=== PATIENT | male | born 1945 | race Caucasian/White ===

== ENCOUNTER 2018-04-06 11:27 | Outpatient (RCR) | payer MEDICARE, MEDICAID, SELFPAY | END 2018-04-27 23:59 | disposition home or self-care (01) | LOC: CR 11:27 | PROVIDERS: PCP Family Medicine; Visit Provider Family Medicine | DX: Z95.0 Presence of cardiac pacemaker (principal); Z51.89 Encounter for other specified aftercare | CPT/HCPCS: S9472 ==

== ENCOUNTER 2018-04-10 10:30 | Outpatient (CLI) | payer MEDICARE, MEDICAID, SELFPAY | END 2018-04-10 10:31 | PROVIDERS: PCP Family Medicine; Visit Provider Nurse Practitioner Family | DX: Z45.018 Encounter for adjustment and management of other part of cardiac pacemaker (principal); I48.0 Paroxysmal atrial fibrillation; I49.5 Sick sinus syndrome; I50.32 Chronic diastolic (congestive) heart failure; N18.3 Chronic kidney disease, stage 3 (moderate) | CPT/HCPCS: 93280; 99213 ==

== ENCOUNTER 2018-04-10 10:58 | Outpatient (CLI) | payer MEDICARE, MEDICAID, SELFPAY ==
[2018-04-10 11:34] LABS: HCT 33.2 % (40.0-50.0); HGB 11.2 g/dL (13.5-17.5); Mean Corp. HGB Concentration 33.7 g/dL (32.0-36.0); Mean Corpuscular Volume 97.9 fL (80-95); Mean Platelet Volume 8.7 fL (8.0-11.0); Platelet Count 200 x1000/uL (130-400); RBC 3.39 m/cumm (4.50-6.00); RBC Distribution Width 13.5 % (11.8-14.1); White Blood Cell Count 7.65 k/cumm (4.4-10.8)
[2018-04-10 13:03] LABS: Anion Gap 9.6 mmol/L (3-11); BUN 49 mg/dL (7-18); CO2 26.4 mmol/L (21.0-32.0); CREATININE 2.47 mg/dL (0.70-1.30); Calcium 8.7 mg/dL (8.5-10.1); Chloride 104 mmol/L (98-107); Glucose 119 mg/dL (70-100); NT-proBNP 235 pg/mL; Potassium 4.7 mmol/L (3.5-5.1); Sodium 140 mmol/L (136-145)
== END 2018-04-10 10:59 ==
PROVIDERS: Nurse Practitioner Family; PCP Family Medicine; Visit Provider Internal Medicine Interventional Cardiology
DX: I25.10 Atherosclerotic heart disease of native coronary artery without angina pectoris (principal); I50.9 Heart failure, unspecified
CPT/HCPCS: 36415; 80048; 85027; 93280; 83880; 99213

== ENCOUNTER 2018-04-16 13:18 | Outpatient (CLI) | payer MEDICARE, MEDICAID, SELFPAY ==
[2018-04-16 13:43] LABS: HCT 33.9 % (40.0-50.0); HGB 11.4 g/dL (13.5-17.5); Mean Corp. HGB Concentration 33.6 g/dL (32.0-36.0); Mean Corpuscular Hemoglobin 32.9 pg (27.0-33.0); Mean Corpuscular Volume 97.7 fL (80-95); Mean Platelet Volume 8.9 fL (8.0-11.0); Platelet Count 225 x1000/uL (130-400); RBC 3.47 m/cumm (4.50-6.00); RBC Distribution Width 13.4 % (11.8-14.1); White Blood Cell Count 7.58 k/cumm (4.4-10.8)
[2018-04-16 15:01] LABS: Anion Gap 9.6 mmol/L (3-11); BUN 32 mg/dL (7-18); CO2 24.4 mmol/L (21.0-32.0); Calcium 8.8 mg/dL (8.5-10.1); Chloride 103 mmol/L (98-107); Estimated GFR 39.71 (mL/min/1.73m2); Glucose 131 mg/dL (70-100); NT-proBNP 399 pg/mL; Potassium 4.2 mmol/L (3.5-5.1); Sodium 137 mmol/L (136-145)
== END 2018-04-16 13:19 ==
PROVIDERS: Internal Medicine Interventional Cardiology; PCP Family Medicine; Visit Provider Nurse Practitioner Gerontology
DX: I25.10 Atherosclerotic heart disease of native coronary artery without angina pectoris (principal); I50.9 Heart failure, unspecified
CPT/HCPCS: 36415; 80048; 85027; 83880

== ENCOUNTER 2018-04-16 14:00 | Outpatient (CLI) | payer MEDICARE, MEDICAID, SELFPAY | END 2018-04-16 14:01 | PROVIDERS: PCP Family Medicine; Visit Provider Internal Medicine Interventional Cardiology | DX: R06.02 Shortness of breath (principal); I51.9 Heart disease, unspecified; I48.91 Unspecified atrial fibrillation; R00.1 Bradycardia, unspecified; R09.02 Hypoxemia; I11.0 Hypertensive heart disease with heart failure; J44.9 Chronic obstructive pulmonary disease, unspecified; I27.20 Pulmonary hypertension, unspecified | CPT/HCPCS: 99213 ==

== ENCOUNTER 2018-04-16 14:49 | Outpatient (CLI) | payer MEDICARE, MEDICAID, SELFPAY | END 2018-04-16 14:50 | PROVIDERS: PCP Family Medicine; Visit Provider Internal Medicine Interventional Cardiology | DX: I25.10 Atherosclerotic heart disease of native coronary artery without angina pectoris (principal); I50.9 Heart failure, unspecified; I48.91 Unspecified atrial fibrillation | CPT/HCPCS: 93005; 36415; 80048; 85027; 83880; 93010; 99213 ==

== ENCOUNTER 2018-04-29 13:03 | Outpatient (RCR) | payer MEDICARE, MEDICAID, SELFPAY | END 2018-05-27 23:59 | disposition home or self-care (01) | LOC: CR 13:03 | PROVIDERS: PCP Family Medicine; Visit Provider Family Medicine | DX: Z51.89 Encounter for other specified aftercare (principal) ==

== ENCOUNTER 2018-05-03 12:06 | Outpatient (RCR) | payer MEDICARE, MEDICAID, SELFPAY | END 2018-05-27 23:59 | disposition home or self-care (01) | LOC: CR 12:06 | PROVIDERS: PCP Family Medicine; Visit Provider Family Medicine | DX: Z51.89 Encounter for other specified aftercare (principal) ==

== ENCOUNTER 2018-05-24 02:37 | Outpatient (CLI) | payer MEDICARE, MEDICAID, SELFPAY ==
[2018-05-24 10:39] VITALS: PULSE 102; PULSE 106; PULSE 60; PULSE 90; O2SAT 87; O2SAT 89; O2SAT 94; O2SAT 96
== END 2018-05-24 02:57 ==
PROVIDERS: PCP Family Medicine; Visit Provider Internal Medicine Interventional Cardiology
DX: R06.89 Other abnormalities of breathing (principal)
CPT/HCPCS: 94618

== ENCOUNTER → 2018-06-05 11:12 | Outpatient (BNVA) | payer MEDICARE, MEDICAID, SELFPAY | PROVIDERS: Visit Provider Nurse Practitioner Family | DX: I48.0 Paroxysmal atrial fibrillation (principal); I49.5 Sick sinus syndrome; Z45.018 Encounter for adjustment and management of other part of cardiac pacemaker; Z79.01 Long term (current) use of anticoagulants; J44.9 Chronic obstructive pulmonary disease, unspecified; Z87.891 Personal history of nicotine dependence | CPT/HCPCS: 93280; 99213 ==

== ENCOUNTER 2018-07-02 12:28 | Outpatient (CLI) | payer MEDICARE, MEDICAID, SELFPAY ==
[2018-07-02 12:52] LABS: Abs Immature Grans 0.01 k/cumm (0.0-0.09); Absolute Basophil Count 0.04 k/cumm (0.0-0.2); Absolute Eosinophil Count 0.35 k/cumm (0.0-0.7); Absolute Lymphocyte Count 1.43 k/cumm (1.2-3.4); Absolute Monocyte Count 0.52 k/cumm (0.11-0.7); Absolute Neutrophil Count 4.28 k/cumm (1.2-6.7); Basophils % 0.6; Eosinophils % 5.3; HCT 36.9 % (40.0-50.0); HGB 12.3 g/dL (13.5-17.5); Immature Grans % 0.2; Lymphocytes % 21.6; Mean Corp. HGB Concentration 33.3 g/dL (32.0-36.0); Mean Corpuscular Volume 96.1 fL (80-95); Mean Platelet Volume 9.1 fL (8.0-11.0); Monocytes % 7.8; Neutrophils % 64.5; Platelet Count 246 x1000/uL (130-400); RBC 3.84 m/cumm (4.50-6.00); RBC Distribution Width 13.6 % (11.8-14.1); White Blood Cell Count 6.63 k/cumm (4.4-10.8)
[2018-07-02 13:16] LABS: INR 3.9 (1.0-3.5); Prothrombin Time 36.5 sec (9.3-10.8)
[2018-07-02 13:16] LABS: Hemoglobin A1C 5.5 % (4.5-6.2)
[2018-07-02 13:31] LABS: COMMENT (LAB VIEW ONLY) 18.54 mg/dL; Microalb ug/mg Crea 22.1 ug/mg Cr
[2018-07-02 13:56] LABS: Iron 87 ug/dL (50-175)
[2018-07-02 14:11] LABS: ALT 23 U/L (12-78); AST 21 U/L (15-37); Albumin 4.3 g/dL (3.4-5.0); Alkaline Phosphatase 72 U/L (46-116); Anion Gap 8.1 mmol/L (3-11); BUN 38 mg/dL (7-18); Bilirubin, Total 0.4 mg/dL (0.2-1.0); CO2 26.9 mmol/L (21.0-32.0); CREATININE 1.83 mg/dL (0.70-1.30); Calcium 9.2 mg/dL (8.5-10.1); Chloride 103 mmol/L (98-107); Cholesterol 172 mg/dL (50-200); Estimated GFR 36.47 (mL/min/1.73m2); Ferritin 169 ng/mL (8-388); Glucose 99 mg/dL (70-100); HDL Cholesterol 38 mg/dL (40-60); LDL CHOLESTEROL 83 mg/dL (<100); Potassium 5.5 mmol/L (3.5-5.1); Sodium 138 mmol/L (136-145); Total Protein 8.1 g/dL (6.4-8.2); Triglyceride 282 mg/dL (30-150)
[2018-07-02 14:30] LABS: NT-proBNP 369 pg/mL; PHOSPHORUS 3.1 mg/dL (2.6-4.7)
== END 2018-07-02 12:48 ==
PROVIDERS: PCP Family Medicine; Visit Provider Family Medicine
DX: E78.2 Mixed hyperlipidemia (principal); D64.9 Anemia, unspecified; I50.42 Chronic combined systolic (congestive) and diastolic (congestive) heart failure; R73.02 Impaired glucose tolerance (oral); I48.91 Unspecified atrial fibrillation; N18.3 Chronic kidney disease, stage 3 (moderate); Z79.01 Long term (current) use of anticoagulants
CPT/HCPCS: 36415; 80061; 80069; 80076; 83721; 82043; 82570; 82728; 83036; 83540; 83880; 85025; 85610

== ENCOUNTER → 2018-07-17 10:20 | Outpatient (BNVA) | payer MEDICARE, MEDICAID, SELFPAY | PROVIDERS: PCP Family Medicine; Visit Provider Nurse Practitioner Family | DX: R69 Illness, unspecified (principal) ==

== ENCOUNTER → 2018-07-30 09:56 | Outpatient (BNVA) | payer MEDICARE, MEDICAID, SELFPAY | PROVIDERS: PCP Family Medicine; Referring Provider Family Medicine; Visit Provider Surgery | DX: K42.9 Umbilical hernia without obstruction or gangrene (principal); J44.9 Chronic obstructive pulmonary disease, unspecified; Z87.891 Personal history of nicotine dependence; I10 Essential (primary) hypertension | CPT/HCPCS: 99214 ==

== ENCOUNTER → 2018-10-25 10:27 | Outpatient (BNVA) | payer MEDICARE, MEDICAID, SELFPAY | PROVIDERS: PCP Family Medicine; Visit Provider Nurse Practitioner Family | DX: I48.0 Paroxysmal atrial fibrillation (principal); I49.5 Sick sinus syndrome; J44.9 Chronic obstructive pulmonary disease, unspecified; I13.0 Hypertensive heart and chronic kidney disease with heart failure and stage 1 through stage 4 chronic kidney disease, or unspecified chronic kidney disease; N18.9 Chronic kidney disease, unspecified; Z87.891 Personal history of nicotine dependence; Z45.018 Encounter for adjustment and management of other part of cardiac pacemaker; I50.32 Chronic diastolic (congestive) heart failure | CPT/HCPCS: 93280; 99213 ==

== ENCOUNTER 2018-11-26 08:58 | Outpatient (CLI) | payer MEDICARE, MEDICAID, SELFPAY | END 2018-11-26 09:18 | PROVIDERS: PCP Family Medicine; Visit Provider Internal Medicine Interventional Cardiology | DX: I25.10 Atherosclerotic heart disease of native coronary artery without angina pectoris (principal); I42.0 Dilated cardiomyopathy; I51.9 Heart disease, unspecified; R06.02 Shortness of breath; I48.91 Unspecified atrial fibrillation; I11.9 Hypertensive heart disease without heart failure; I27.20 Pulmonary hypertension, unspecified | CPT/HCPCS: 99214; 93005; 93010 ==

== ENCOUNTER 2019-02-22 14:20 | Outpatient (CLI) | payer MEDICARE, MEDICAID, SELFPAY ==
[2019-02-22 14:42] LABS: HCT 34.6 % (40.0-50.0); HGB 11.3 g/dL (13.5-17.5); Mean Corp. HGB Concentration 32.7 g/dL (32.0-36.0); Mean Corpuscular Hemoglobin 32.2 pg (27.0-33.0); Mean Corpuscular Volume 98.6 fL (80-95); Mean Platelet Volume 8.7 fL (8.0-11.0); Platelet Count 256 x1000/uL (130-400); RBC 3.51 m/cumm (4.50-6.00); White Blood Cell Count 6.63 k/cumm (4.4-10.8)
[2019-02-22 15:49] LABS: Anion Gap 9.7 mmol/L (3-11); BUN 33 mg/dL (7-18); CO2 24.3 mmol/L (21.0-32.0); CREATININE 2.12 mg/dL (0.70-1.30); Chloride 103 mmol/L (98-107); Estimated GFR 30.69 (mL/min/1.73m2); NT-proBNP 494 pg/mL; Potassium 5.1 mmol/L (3.5-5.1); Sodium 137 mmol/L (136-145)
== END 2019-02-22 14:40 ==
PROVIDERS: PCP Family Medicine; Visit Provider Internal Medicine Interventional Cardiology
DX: I27.20 Pulmonary hypertension, unspecified (principal); I48.91 Unspecified atrial fibrillation; J44.9 Chronic obstructive pulmonary disease, unspecified; R06.02 Shortness of breath
CPT/HCPCS: 36415; 80051; 84520; 85027; 82565; 83880

== ENCOUNTER 2019-02-25 08:45 | Outpatient (CLI) | payer MEDICARE, MEDICAID, SELFPAY | END 2019-02-25 09:05 | PROVIDERS: PCP Family Medicine; Visit Provider Internal Medicine Interventional Cardiology | DX: I48.91 Unspecified atrial fibrillation (principal); J44.9 Chronic obstructive pulmonary disease, unspecified; I51.9 Heart disease, unspecified; I27.20 Pulmonary hypertension, unspecified; R00.1 Bradycardia, unspecified; I11.0 Hypertensive heart disease with heart failure | CPT/HCPCS: 99214; 93005; 93010; 99213 ==

== ENCOUNTER 2019-04-08 08:14 | Outpatient (CLI) | payer MEDICARE, MEDICAID, SELFPAY | END 2019-04-08 08:34 | PROVIDERS: PCP Family Medicine; Visit Provider Internal Medicine Interventional Cardiology | DX: I51.9 Heart disease, unspecified (principal); R06.02 Shortness of breath; I48.91 Unspecified atrial fibrillation; Z95.0 Presence of cardiac pacemaker; R00.1 Bradycardia, unspecified; E11.9 Type 2 diabetes mellitus without complications; I10 Essential (primary) hypertension; I27.20 Pulmonary hypertension, unspecified; R09.02 Hypoxemia | CPT/HCPCS: 36415; 80051; 80061; 80076; 83721; 84520; 85027; 99214; 82565; 83880; 84443; 84484; 93005; 93010 ==

== ENCOUNTER 2019-04-08 13:16 | Outpatient (CLI) | payer MEDICARE, MEDICAID, SELFPAY ==
[2019-04-08 13:56] LABS: HCT 34.7 % (40.0-50.0); HGB 11.2 g/dL (13.5-17.5); Mean Corp. HGB Concentration 32.3 g/dL (32.0-36.0); Mean Corpuscular Hemoglobin 31.7 pg (27.0-33.0); Mean Corpuscular Volume 98.3 fL (80-95); Mean Platelet Volume 9.1 fL (8.0-11.0); Platelet Count 223 x1000/uL (130-400); RBC 3.53 m/cumm (4.50-6.00)
[2019-04-08 14:20] LABS: ALT 16 U/L (12-78); AST 12 U/L (15-37); Albumin 3.6 g/dL (3.4-5.0); Alkaline Phosphatase 56 U/L (46-116); Anion Gap 10.3 mmol/L (3-11); BUN 57 mg/dL (7-18); Bilirubin, Total 0.7 mg/dL (0.2-1.0); CO2 24.7 mmol/L (21.0-32.0); CREATININE 3.41 mg/dL (0.70-1.30); Chloride 103 mmol/L (98-107); Estimated GFR 17.73 (mL/min/1.73m2); NT-proBNP 522 pg/mL; Potassium 5.4 mmol/L (3.5-5.1); Sodium 138 mmol/L (136-145); TSH (W/Ref FT4) 2.31 uIU/mL (0.36-3.74)
[2019-04-08 14:21] LABS: Troponin I < 0.05 ng/mL (0.00-0.06)
[2019-04-08 14:34] LABS: Calculated LDL 52 mg/dL; Cholesterol 128 mg/dL (50-200); HDL Cholesterol 28 mg/dL (40-60); Triglyceride 241 mg/dL (30-150)
== END 2019-04-08 13:36 ==
PROVIDERS: PCP Family Medicine; Visit Provider Internal Medicine Interventional Cardiology
DX: N19 Unspecified kidney failure (principal); I48.91 Unspecified atrial fibrillation
CPT/HCPCS: 36415; 80051; 80061; 80076; 83721; 84520; 85027; 82565; 83880; 84443; 84484

== ENCOUNTER 2019-05-01 09:12 | Outpatient (CLI) | payer MEDICARE, MEDICAID, SELFPAY ==
[2019-05-01 11:37] LABS: Amylase 66 U/L (25-115); Lipase 261 U/L (73-393)
== END 2019-05-01 09:32 ==
PROVIDERS: PCP Family Medicine; Visit Provider Internal Medicine Interventional Cardiology
DX: R10.9 Unspecified abdominal pain (principal); I48.92 Unspecified atrial flutter
CPT/HCPCS: 36415; 83690; NC OV; 82150; 93005; 93010

== ENCOUNTER → 2019-05-07 08:39 | Outpatient (BNVA) | payer MEDICARE, MEDICAID, SELFPAY | PROVIDERS: PCP Family Medicine; Visit Provider Nurse Practitioner Family | DX: I48.92 Unspecified atrial flutter (principal); I49.5 Sick sinus syndrome; Z45.018 Encounter for adjustment and management of other part of cardiac pacemaker | CPT/HCPCS: 93280; 99024 ==

== ENCOUNTER 2019-06-05 10:44 | Emergency (ER) | payer MEDICARE, MEDICAID, SELFPAY ==
[2019-06-05] VITALS (8 sets, daily range): BP systolic 117–138; BP diastolic 70–90; PULSE 69–74; RESP 16–18; TEMP 36.6; O2SAT 94–98
--- NOTE | 2019-06-05 11:08 | ED.GENADUL_ITS ---
Discharge Plan Disposition Patient Disposition: HOME Condition: Stable Discharge Details Chief Complaint: Abd Prob Clinical Impression: Abdominal pain, Acute streptococcal pharyngitis, Tinea corporis, Left kidney mass Primary Care Provider: Gunnar Brannon ED Provider: Asuncion Greenwood Home Meds and New Rx's Prescriptions: New amoxicillin 500 mg tablet 500 mg PO BID 10 Days Qty: 20 RF: 0 clotrimazole-betamethasone 1-0.05 % cream 1 applic TP BID 14 Days Qty: 15 RF: 0 Continued rosuvastatin 10 mg tablet 10 mg PO DAILY RF: 0 carvedilol 12.5 mg tablet 12.5 mg PO BID RF: 0 fluticasone propionate 50 mcg/actuation spray,suspension 1 spray JAREN DAILY PRNRF: 0 nystatin 100,000 unit/gram cream 1 applic TP BID RF: 0 spironolactone 25 mg tablet 25 mg PO QAM RF: 0 prednisone 5 mg tablet 15 mg PO .3X/WEEK RF: 0 albuterol sulfate [Ventolin HFA] 90 mcg/actuation HFA aerosol inhaler 2 puff IH Q6H PRNRF: 0 warfarin 2.5 MG tablet 2.5 mg PO DAILY RF: 0 ranitidine HCl 300 MG capsule 300 mg PO BID RF: 0 lisinopril 10 MG tablet 10 mg PO DAILY Qty: 90 RF: 3 clopidogrel [Plavix] 75 MG tablet 75 mg PO DAILY Qty: 90 RF: 3 torsemide 20 MG tablet 80 mg PO DAILY Qty: 120 RF: 11 tamsulosin 0.4 MG capsule 0.4 mg PO DAILY Qty: 30 RF: 0 nitroglycerin [Nitrostat] 0.4 MG tablet, sublingual 0.4 mg Sublingual Q5 MIN PRN X3 PRNQty: 60 RF: 0 Discharge Instructions Instructions: Pharyngitis (ED), Abdominal Pain (ED), Skin Yeast Infection (ED) Additional Instructions: Take the antibiotics until finished. Use the topical antifungal/steroid cream as directed. Call your primary care doctor tomorrow to schedule a follow-up appointment for reevaluation and for further evaluation of your left kidney mass noted on CT and ultrasound. Return immediately to the emergency department if you develop any worsening or new concerning symptoms. Discharge Data Discharge Date/Time-TO BE ENTERED AT DEPARTURE: 06/05/19 17:45 Discharge Physician: Asuncion Greenwood Medical Decision Making 73-year-old male with a history of atrial fibrillation on Coumadin, COPD, CKD, GERD and obstructive sleep apnea who presents with left lower quadrant pain for the past week and a dry cough and sore throat since this morning. He does also admit to diarrhea last week and vomiting 3 days ago which have since resolved. He saw his primary doctor yesterday who advised him to come to the ER for his abdominal pain but he presents today. Rapid strep done on arrival and positive. His abdomen is obese and distended and tender in the right upper and left lower quadrant. He appears nontoxic. No abdominal rigidity or guarding. Differential diagnosis includes diverticulitis, appendicitis, cholecystitis, gastroenteritis. Will place an IV, small bolus IV fluids, labs, urinalysis and CT abdomen and pelvis. Labs reviewed and note a normal white blood cell count of 8, normal electro lytes, BUN 79, creatinine slightly worse from last result in March of 3.412 now 3.57, GFR 16. Lipase is normal, urinalysis unremarkable. Will cancel CT with IV contrast and do oral contrast only. 1520 -- CT notes a a 7 cm left kidney mass but no other acute significant findings. A kidney ultrasound was recommended for further evaluation. 1700 --ultrasound reviewed and there is a 6.5 cm cystic mass noted in the left kidney which could be evaluated further by MRI. Patient has a pacemaker so this would not be recommended. Findings could indicate chronic UPJ obstruction. Patient has no difficulty with urination. Patient states he feels much better and feels good to go home. We will treat his strep with amoxicillin. Just prior to discharge, patient wanted me to evaluate an itchy burning rash in his right axilla. This appeared consistent with tinea corporis and was given a prescription for clotrimazole/betamethasone. He is advised to follow-up with his primary care doctor for reevaluation and to return here if worse. Imaging Data Radiologic Study: Radiologist's impression: CT ABDOMEN AND PELVIS WO CLINICAL HISTORY: LLQ abd pain, r/o diverticulitis. TECHNIQUE: The examination was carried out with oral contrast enhancement. COMPARISON: No exams were available for comparison FINDINGS: Allowing for motion artifact, no gross abnormality involving the lung bases is seen. The heart is enlarged, pacing wires are noted ending in the right atrium and right ventricle. The liver and gallbladder are unremarkable. The pancreas is intact. A small calcification in the spleen consistent with old granulomatous disease. There is what appears to represent a mass involving the midpole of the left kidney, which measures up to 7.3 cm is in maximal diameter. There is no evidence of hydronephrosis. The right kidney is unremarkable. The adrenals are unremarkable. There is no evidence of obstruction and there is nothing to suggest an acute appendix. Scattered diverticula are demonstrated in the sigmoid colon. There is no definite evidence of diverticulitis. There are atherosclerotic changes involving the aorta without evidence of an aneurysm. The bladder is not ideally distended but appears grossly intact. The reproductive organs as visualized appear intact. IMPRESSION: Diverticulosis without evidence of diverticulitis. There is what appears to represent a mass projected over the mid pole of the left kidney which may measure up to 7.3 cm in maximal diameter. In the absence of intravenous contrast enhancement, further evaluation with ultrasound is suggested. US RENAL CLINICAL HISTORY: further eval of L kidney mass. TECHNIQUE: Ultrasound performed using standard protocol. COMPARISON: CT ABDOMEN PELVIS WO from 06/05/2019 FINDINGS: The exam is limited by the patient's body habitus. There is dilatation of the left renal pelvis as seen on the previous CT. It appears to abruptly end at the renal pelvis. No stone is visible on the CT. The findings could represent chronic ureteropelvic junction obstruction. There is a cystic mass with septations on the lateral aspect of the left kidney measuring 6.5 by 5.2 x 3.6 cm. The right kidney is unremarkable. The prevoid bladder volume measured 51 cc. The patient was unable to void. There is no bladder wall thickening. The left ureteral jet was not seen. IMPRESSION: 6.5 centimeter septated cystic mass of the left kidney was not well evaluated by either ultrasound or CT. MRI could be considered for further evaluation. Dilatation of the left renal pelvis could represent chronic UPJ obstruction or prominent UPJ. HPI General Mode of arrival: ambulatory . Date/Time Provider Initiated Documentation: 06/05/19 10:46 . Limitations to Documentation: no limitations . Information obtained by: patient . HPI Narrative: Patient is a 73-year-old male with a history of atrial fibrillation on Coumadin, BPPV, COPD, CKD, GERD, obstructive sleep apnea, pacemaker and cardiac stent who presents with abdominal pain, vomiting and diarrhea for the past week, and sore throat dry cough since this morning. He states last week he had multiple episodes of watery brown diarrhea which has since resolved and states he has not had a bowel movement for the past week. He states he was vomiting up to 12 times a day 3 days ago and states he last vomited 2 days ago. He describes his abdominal pain is intermittent, crampy in the left lower quadrant. He states he saw his primary care doctor yesterday for his symptoms and was advised to come to the ER yesterday but he did not. He denies any fever, urinary symptoms, chest pain, or any worsening of his chronic shortness of breath. Related Data Home Medications Medication Instructions Recorded Confirmed nitroglycerin [Nitrostat] 0.4 mg SUBLINGUAL Q5 MIN PRN X3 12/09/14 06/05/19 PRN #60 tab tamsulosin 0.4 mg PO DAILY #30 capcr 12/09/14 06/05/19 ranitidine HCl 300 mg PO BID tab-cap 06/02/15 06/05/19 warfarin 2.5 mg PO DAILY tab-cap 06/02/15 06/05/19 clopidogrel [Plavix] 75 mg PO DAILY #90 tab-cap 02/14/18 06/05/19 lisinopril 10 mg PO DAILY #90 tab-cap 02/14/18 06/05/19 torsemide 80 mg PO DAILY #120 tab-cap 03/21/18 06/05/19 albuterol sulfate 90 mcg/actuation 2 puff IH Q6H PRN 11/26/18 06/05/19 aerosol inhaler carvedilol 12.5 mg tablet 12.5 mg PO BID 05/01/19 06/05/19 fluticasone propionate 50 1 spray JAREN DAILY PRN 05/01/19 06/05/19 mcg/actuation nasal spray,suspension nystatin 100,000 unit/gram topical 1 applic TP BID 05/01/19 06/05/19 cream rosuvastatin 10 mg tablet 10 mg PO DAILY 05/01/19 06/05/19 spironolactone 25 mg tablet 25 mg PO QAM tab 05/01/19 06/05/19 prednisone 5 mg tablet 15 mg PO .3X/WEEK tab 05/07/19 06/05/19 amoxicillin 500 mg PO BID 10 Days #20 tab 06/05/19 clotrimazole-betamethasone 1 applic TP BID 14 Days #15 gm 06/05/19 Previous Rx's Medication Instructions Recorded nitroglycerin [Nitrostat] 0.4 mg SUBLINGUAL Q5 MIN PRN X3 12/09/14 PRN #60 tab tamsulosin 0.4 mg PO DAILY #30 capcr 12/09/14 clopidogrel [Plavix] 75 mg PO DAILY #90 tab-cap 02/14/18 lisinopril 10 mg PO DAILY #90 tab-cap 02/14/18 torsemide 80 mg PO DAILY #120 tab-cap 03/21/18 amoxicillin 500 mg PO BID 10 Days #20 tab 06/05/19 clotrimazole-betamethasone 1 applic TP BID 14 Days #15 gm 06/05/19 Allergies Allergy/AdvReac Type Severity Reaction Status Date / Time codeine Allergy Verified 05/07/19 09:04 atorvastatin AdvReac severe Verified 05/07/19 09:04 headaches morphine AdvReac Verified 05/07/19 09:04 General Stated Complaint: Abd Prob PATEL: 3 Review of Systems Review of Systems ROS Unobtainable: All systems reviewed & are unremarkable except as noted in HPI and below Constitutional Constitutional: Reports as per HPI, Denies chills and Denies fever(s) Eyes Eyes: Denies blurry vision ENT Ears, Nose, Mouth, and Throat: Denies dizziness, Reports sore throat and Denies throat swelling Cardiovascular Cardiovascular: Denies chest pain and Denies dyspnea Respiratory Respiratory: Denies cough and Denies dyspnea Gastrointestinal Gastrointestinal: Reports abdominal pain, Denies diarrhea and Denies vomiting Genitourinary Genitourinary: Denies hematuria and Denies dysuria Musculoskeletal Musculoskeletal: Denies back pain and Denies numbness Integumentary/Breasts Skin/Breast: Denies lesions and Denies rash Neurologic Neurologic: Denies dizziness, Denies focal weakness and Denies numbness Allergic/Immunologic Allergic/Immunologic: Denies throat swelling [facility] Medical History Allergic rhinitis (Acute) Anemia (Chronic) Aortic valve stenosis (Chronic) Atherosclerosis of coronary artery without angina pectoris (Chronic) Atrial fibrillation (Chronic ~09/2017) clinically silent Benign paroxysmal positional vertigo (Chronic) Cardiomyopathy (Chronic ~04/2018) LVEF = 50-55% on 09/2017 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) Chronic kidney disease (Chronic) stage three COPD (chronic obstructive pulmonary disease) (Chronic) Degeneration of intervertebral disc (Chronic) Dyspnea (Acute ~04/2018) qualifies for oxygen Essential (primary) hypertension (Chronic) Generalized abdominal pain (Acute) GERD (gastroesophageal reflux disease) (Chronic) Hyperlipidemia (Chronic) Hyperplasia of prostate (Chronic) Hypersomnia (Chronic) Impaired glucose tolerance (Acute) JONNY (obstructive sleep apnea) (Chronic) Pacemaker (Chronic 11/21/17) [facility] Patent ductus arteriosus (Chronic) Pulmonary hypertension (Chronic) Sick sinus syndrome (Chronic) Umbilical hernia (Acute ~05/2018) Surgical History EGD/COLONOSCOPY W/MAC (07/10/15) DR.C. JAVIER History of permanent cardiac pacemaker placement (Resolved) History of right coronary artery stent placement (Acute) Social History Smoking/Tobacco Use Status: Former Tobacco Use Tobacco: How many years used: 20 Smokeless tobacco user: chewing tobacco Alcohol Intake: former Year quit: 2001 Drug use: Never Substance use type: does not use Do you feel safe in your relationship?: Yes Exam Const General: cooperative and no acute distress Orientation: alert and awake HENMT Head: normal to inspection Ears: hearing grossly normal bilaterally, external ears normal and TM's normal bilaterally General nose exam: external nose normal Face and sinus: normal facial exam Mouth: oral mucosae normal Teeth and gingiva: dentition normal Throat: uvula midline, no peritonsillar masses and posterior oropharynx abnormal erythema; no edema and no exudates Eyes General: appearance normal, both eyes and all related structures Eyelids: eyelids normal Pupils: PERRL EOM: EOM intact bilaterally Neck Neck: normal visual inspection, no meningeal signs, trachea midline, supple, no anterior neck swelling, no midline deformity and No submandibular swelling Lymphatic: no lymphadenopathy noted Chest Chest: normal inspection of the chest Resp Effort & Inspection: normal respiratory effort and able to speak in complete sentences Auscultation: clear to auscultation bilaterally Cardio Rate: regular rate Rhythm: regular rhythm GI Inspection: normal to inspection and obesity Palpation: soft, not firm, no guarding, no hepatosplenomegaly, no masses and tender in the LLQ (mild to moderate) Auscultation: normal bowel sounds Skin Other: 5 x 5 cm area of scaling erythematous rash with central clearing in right axilla Neuro General: alert and awake Cognition: normal cognition Speech: speech normal Gait: normal gait Motor: muscle tone normal throughout Sensory Exam: no sensory deficits noted Extrem General: normal to inspection, full ROM, normal capillary refill and edema Laterality: bilateral (1+) Psych Appearance: grossly normal Mental Status: mental status grossly normal Speech and Movement: speech and movement normal Affect: normal affect Thought Process: normal Course Vital Signs Vital signs: Vital Signs Temperature 97.9 F 06/05/19 10:47 Pulse 74 06/05/19 10:47 Respiratory Rate 16 06/05/19 10:47 Blood Pressure 133/72 06/05/19 10:47 Pulse Oximetry 94 L 06/05/19 10:47 Temperature 97.9 F 06/05/19 10:47 Temperature Source Skin 06/05/19 10:47 Pulse 74 06/05/19 10:47 Respiratory Rate 16 06/05/19 10:47 Respiratory Effort Non-Labored 06/05/19 11:00 Blood Pressure 133/72 06/05/19 10:47 Blood Pressure Position Sitting 06/05/19 10:47 Pulse Oximetry 94 L 06/05/19 10:47 Oxygen Delivery Method Room Air 06/05/19 10:47 Oxygen Flow Rate 0 06/05/19 10:47
[2019-06-05 11:53] LABS: Abs Immature Grans 0.05 k/cumm (0.0-0.09); Absolute Eosinophil Count 0.04 k/cumm (0.0-0.7); Absolute Lymphocyte Count 0.95 k/cumm (1.2-3.4); Absolute Monocyte Count 0.67 k/cumm (0.11-0.7); Absolute Neutrophil Count 6.95 k/cumm (1.2-6.7); Eosinophils % 0.5; HCT 34.8 % (40.0-50.0); HGB 11.4 g/dL (13.5-17.5); Immature Grans % 0.6; Mean Corp. HGB Concentration 32.8 g/dL (32.0-36.0); Mean Corpuscular Hemoglobin 32.1 pg (27.0-33.0); Mean Platelet Volume 9.1 fL (8.0-11.0); Monocytes % 7.7; Neutrophils % 80.2; Platelet Count 244 x1000/uL (130-400); RBC 3.55 m/cumm (4.50-6.00); RBC Distribution Width 14.4 % (11.8-14.1); White Blood Cell Count 8.66 k/cumm (4.4-10.8)
[2019-06-05 11:54] LABS: Bilirubin Negative (Negative); Blood Small (Negative); Clarity Clear (Clear); Glucose Negative (Negative); Ketones Negative (Negative); Leukocyte Esterase Negative (Negative); Nitrite Negative (Negative); Urobilinogen 0.2 EU/dL (Up TO 0.2); pH 5.5 (5-8)
[2019-06-05] MEDS: Normal Saline 500 ML IV (12:00)
[2019-06-05 12:05] LABS: Bacteria Rare HPF (Negative); C & S Indicated? No; Casts Negative LPF (Negative); Crystals Negative HPF (Negative); Epithelial Cells Rare HPF (Negative); Mucus Negative (Negative); WBC 0-2 HPF (0-5)
[2019-06-05 12:09] LABS: ALT 21 U/L (16-63); AST 10 U/L (15-37); Albumin 3.9 g/dL (3.4-5.0); Alkaline Phosphatase 46 U/L (46-116); Anion Gap 10.9 mmol/L (3-11); BUN 79 mg/dL (7-18); Bilirubin, Total 0.4 mg/dL (0.2-1.0); CO2 26.1 mmol/L (21.0-32.0); Calcium 9.6 mg/dL (8.5-10.1); Chloride 102 mmol/L (98-107); Estimated GFR 16.82 (mL/min/1.73m2); Glucose 100 mg/dL (70-100); Lipase 197 U/L (73-393); Sodium 139 mmol/L (136-145)
[2019-06-05 12:21] LABS: INR 2.2 (0.9-1.1); PTT Activated 27.1 sec (21.0-31.4); Prothrombin Time 21.4 sec (9.3-11.0)
[2019-06-05] MEDS: Breeza Beverage 473 ML BTL PO ×2 (12:26→12:27)
[2019-06-05] MEDS: Omnipaque 350 MG/ML 50 ML BTL PO (12:27)
--- NOTE | 2019-06-05 14:09 | DI.CT_ITS ---
EXAM: CT ABDOMEN AND PELVIS WO CLINICAL HISTORY: LLQ abd pain, r/o diverticulitis. TECHNIQUE: The examination was carried out with oral contrast enhancement. COMPARISON: No exams were available for comparison FINDINGS: Allowing for motion artifact, no gross abnormality involving the lung bases is seen. The heart is en larged, pacing wires are noted ending in the right atrium and right ventricle. The liver and gallbla dder are unremarkable. The pancreas is intact. A small calcification in the spleen consistent with old granulomatous disease. There is what appears to represent a mass involving the midpole of the lef t kidney, which measures up to 7.3 cm is in maximal diameter. There is no evidence of hydronephrosis . The right kidney is unremarkable. The adrenals are unremarkable. There is no evidence of obstruc tion and there is nothing to suggest an acute appendix. Scattered diverticula are demonstrated in th e sigmoid colon. There is no definite evidence of diverticulitis. There are atherosclerotic changes involving the aorta without evidence of an aneurysm. The bladder is not ideally distended but appear s grossly intact. The reproductive organs as visualized appear intact. IMPRESSION: Diverticulosis without evidence of diverticulitis. There is what appears to represent a mass projecte d over the mid pole of the left kidney which may measure up to 7.3 cm in maximal diameter. In the abs ence of intravenous contrast enhancement, further evaluation with ultrasound is suggested
--- NOTE | 2019-06-05 15:19 | DI.US_ITS ---
EXAM: US RENAL CLINICAL HISTORY: further eval of L kidney mass. TECHNIQUE: Ultrasound performed using standard protocol. COMPARISON: CT ABDOMEN PELVIS WO from 06/05/2019 FINDINGS: The exam is limited by the patient's body habitus. There is dilatation of the left renal pelvis as seen on the previous CT. It appears to abruptly end at the renal pelvis. No stone is visible on the CT. The findings could represent chronic ureteropel arron junction obstruction. There is a cystic mass with septations on the lateral aspect of the left k idney measuring 6.5 by 5.2 x 3.6 cm. The right kidney is unremarkable. The prevoid bladder volume m easured 51 cc. The patient was unable to void. There is no bladder wall thickening. The left urete ral jet was not seen. IMPRESSION: 6.5 centimeter septated cystic mass of the left kidney was not well evaluated by either ultrasound or CT. MRI could be considered for further evaluation. Dilatation of the left renal pelvis could represent chronic UPJ obstruction or prominent UPJ.
[2019-06-11 10:20] LABS: CREATININE 3.57 mg/dL (0.70-1.30)
== END 2019-06-05 17:45 | disposition home or self-care (01) ==
PROVIDERS: Emergency Provider Physician Assistant; PCP Family Medicine
DX: R10.9 Unspecified abdominal pain (principal); J02.0 Streptococcal pharyngitis; B35.4 Tinea corporis; N28.9 Disorder of kidney and ureter, unspecified; I48.91 Unspecified atrial fibrillation; Z79.01 Long term (current) use of anticoagulants; I11.0 Hypertensive heart disease with heart failure; J44.9 Chronic obstructive pulmonary disease, unspecified; I50.9 Heart failure, unspecified; Z87.891 Personal history of nicotine dependence; Z95.0 Presence of cardiac pacemaker
CPT/HCPCS: 36415; 76770; 80053; 83690; 87880; 96360; 99285; 74176; 81003; 81015; 85025; 85610; 85730; 99284; Q9967

== ENCOUNTER → 2019-07-01 10:24 | Outpatient (BNVA) | payer MEDICARE, MEDICAID, SELFPAY | PROVIDERS: PCP Family Medicine; Referring Provider Family Medicine; Visit Provider Surgery | DX: K42.9 Umbilical hernia without obstruction or gangrene (principal); J44.9 Chronic obstructive pulmonary disease, unspecified; I12.9 Hypertensive chronic kidney disease with stage 1 through stage 4 chronic kidney disease, or unspecified chronic kidney disease; N18.3 Chronic kidney disease, stage 3 (moderate); Z87.891 Personal history of nicotine dependence | CPT/HCPCS: 99213 ==